=== PATIENT | male | born 1960 | race Caucasian/White ===

== ENCOUNTER 2017-10-03 09:03 | Day surgery (SDC) | END 2017-10-03 12:43 | disposition home or self-care (01) ==

== ENCOUNTER 2018-10-13 09:59 | Day surgery (SDC) | payer OTHER ==
[~2018-10-13] VITALS: Ht 172.7 cm; Wt 82.4 kg
[~2018-10-13 09:59] MED LIST: MAGN400T27 PO; PRAV80TA27 PO
[2018-10-13 10:57] VITALS: Ht 172.7 cm; Wt 82.4 kg
[2018-10-13] MEDS ORDERED: LOSARTAN (11:01)
[2018-10-13] MEDS ORDERED: IBUPROFEN (11:01)
--- NOTE | 2018-10-13 11:10 | PREAC ---
Date/Time of Note Date/Time of Note DATE: 10/13/18 TIME: 11:09 Anesthesia Eval and Record Evaluation Time Pre-Procedure Interview DATE: 10/13/18 TIME: 11:09 Age 58 Sex male NPO: 8 hrs Preoperative diagnosis COLON SCREENING Planned procedure COLONOSCOPY Past Medical History Past Medical History: Includes Cardio: HTN, Dyslipidemia Psych: Anxiety Surgery & Anesthesia Issues No known issue Meds Anticoagulation: No Beta Jaime within 24 hr: No Reason Beta Jaime not given: Pt. not on B-Jaime Reported Medications [Ibuprofen] No Conflict Check 10/13/18 [Losartan] No Conflict Check 10/13/18 Pravastatin Sodium* (Pravastatin Sodium*) 80 Mg Tablet, 80 MG PO HS, TAB 10/03/17 Discontinued Reported Medications Magnesium Oxide* (Mag-Oxide*) 400 Mg Tablet, 400 MG PO DAILY, TAB 10/03/17 Meds reviewed: Yes Allergies Coded Allergies: No Known Allergy (Unverified , 10/13/18) Allergies Reviewed: Yes Labs/Studies Labs Reviewed: Reviewed by anesthesiologist test: N/A Pre-procedure Exam Airway: Adequate mouth opening Mallampati: Mallampati I Teeth: Normal Lung: Normal Heart: Normal ASA Physical Status ASA physical status: 2 Emergency: None Planned Anesthetic General/MAC: MAC Planned Pain Management Parenteral pain med Pre-operative Attestations Prior to commencing anesthesia and surgery, the patient was re-evaluated, there was verification of: *The patient's identity *The results of appropriate recent lab work and preoperative vital signs *The above evaluation not changing prior to induction *Anesthetic plan, risk benefits, alternative and complications discussed with patient/family; questions answered; patient/family understands, accepts and wishes to proceed. MOLLY DHILLON MD Oct 13, 2018 11:10
[2018-10-13] MEDS ORDERED: PROPOFOL 20 ML ONE (11:19)
[2018-10-13 11:27] VITALS: BP 139/87; PULSE 54; RESP 20
[2018-10-13 11:28] VITALS: BP 139/87; PULSE 54; RESP 16
[2018-10-13] MEDS ORDERED: OXYCODONE/ACETAMINOPHEN (5/325) TAB PO PRN ×2 (11:30)
[2018-10-13] MEDS ORDERED: LABETALOL HCL 20MG INJ IV PRN (11:30)
[2018-10-13] MEDS ORDERED: ONDANSETRON 4 MG INJ IV PRN (11:30)
[2018-10-13] MEDS ORDERED: FENTAnyl 50 MCG/ML VIAL IV PRN ×3 (11:30)
[2018-10-13] MEDS ORDERED: hydrALAzine 20 MG INJ IV PRN (11:30)
[2018-10-13] MEDS ORDERED: DIPHENHYDRAMINE 50 MG INJ IV PRN (11:30)
[2018-10-13] MEDS ORDERED: MIDAZOLAM 1 MG/ML 2 ML INJ IV PRN (11:30)
[2018-10-13] MEDS ORDERED: EPHEDrine SULFATE 50 MG/5 ML SYG IV PRN (11:30)
[2018-10-13] MEDS ORDERED: MEPERIDINE 25 MG INJ IV PRN (11:30)
[2018-10-13] MEDS ORDERED: METOCLOPRAMIDE 10 MG INJ IV PRN (11:30)
[2018-10-13 12:21] VITALS: BP 154/96; PULSE 48; RESP 21
--- NOTE | 2018-10-13 12:55 | PAC ---
Date/Time of Note Date/Time of Note DATE: 10/13/18 TIME: 12:55 Post-Anesthesia Notes Post-Anesthesia Note Last documented vital signs Vital Signs Date Temp Pulse Resp B/P (MAP) Pulse Ox O2 O2 Flow FiO2 Time Delivery Rate 10/13/18 48 21 154/96 99 Room Air 12:21 (115) 10/13/18 98.2 11:28 Activity: WNL Respiratory function: WNL Cardiovascular function: WNL Mental status: Baseline Pain reasonably controlled: Yes Hydration appropriate: Yes Nausea/Vomiting absent: Yes MOLLY DHILLON MD Oct 13, 2018 12:55
== END 2018-10-13 12:18 | disposition home or self-care (01) ==
LOC: GIL 09:59
PROVIDERS: ATTEND Internal Medicine Gastroenterology
DX: Z12.11 Encounter for screening for malignant neoplasm of colon (principal); K64.8 Other hemorrhoids
CPT/HCPCS: 45378; Z7610